=== PATIENT | male | born 1950 | race Caucasian/White ===

== ENCOUNTER → 2018-02-24 08:24 | Outpatient (CLI) | payer BC, SELFPAY ==
--- NOTE | 2018-02-24 | DI.US.S_ITS ---
PROCEDURE: US ABD AORTA ANEURYSM SCREEN INDICATIONS: SCREENING/FORMER SMOKER TECHNIQUE: Real time scanning was performed of the aorta and iliac arteries, with image documentation. COMPARISON: None. FINDINGS: Aorta: Proximal aortic diameter measures 2.3 cm. Mid-aorta measures 1.8 cm. Distal aortic diameter is 1.6 cm. Iliac arteries: Right common iliac artery measures 1.1 cm. Left common iliac artery measures 1 cm. IMPRESSION: Negative for aneurysm. Dictated by: Raphael Barr M.D. on 02/24/2018 at 8:29 Approved by: Raphael Barr M.D. on 02/24/2018 at 8:29
== END ==
PROVIDERS: PCP Family Medicine; Visit Provider Family Medicine
DX: Z13.6 Encounter for screening for cardiovascular disorders (principal); Z87.891 Personal history of nicotine dependence
CPT/HCPCS: 76706

== ENCOUNTER 2019-01-27 12:00 | Day surgery (SDC) | payer MEDICARE, OTHER, SELFPAY ==
[2019-01-27] VITALS (9 sets, daily range): BP systolic 117–140; BP diastolic 60–82; PULSE 57–67; RESP 12–16; TEMP 35.9–36.9; O2SAT 95–96; BMI 27.8
--- NOTE | 2019-01-27 | PATH_ITS ---
[facility] Accession Number: [id number] . 01 Material submitted: . rectum - DISTAL RECTAL POLYP . 02 Diagnosis: Polyp From Distal Rectum: Pedunculated mixed tubular and villiform adenoma, apparently excised in the plane of section. MRV/01/28/2019 . 02 Electronically signed: . Norberto Calderon MD, Pathologist NPI- [id number] . 01 Gross description: . DISTAL RECTAL POLYP: Received in formalin is 1 fragment(s) of sullivan, soft tissue measuring 0.6 x 0.5 x 0.9 cm which is bisected and submitted entirely in 1 cassette(s) /DMC /DMC . 02 Pathologist provided ICD-10: D12.8 . 02 CPT . [id number] Performed at: 01 [facility] [address] [id number] MD Jose G Chacon MD Phone: [phone] Performed at: 02 [facility] [address] [place], [place] [id number] MD Jennifer Madrigal MD Phone: [phone]
[2019-01-27] MEDS: SODIUM CHLORIDE 0.9% 1,000 ML 200 ML IV (12:46)
--- NOTE | 2019-01-27 13:12 | PM.HP.1 ---
History of Present Illness Date Patient Seen: 01/27/19 Time Patient Seen: 13:00 Chief complaint: [id number] Narrative: 68-year-old man presents for 1st ever screening colonoscopy His mother had a history of rectal cancer in her 70s No bowel complaints Tolerated his prep well Patient History Medical History (Updated 01/27/19 @ 12:22 by Jennifer Mejía, MIKEL) Diabetes type 2, controlled (Acute) Elevated cholesterol (Acute) Hypertension (Acute) Myocardial infarct (Acute) Surgical History (Updated 01/27/19 @ 12:21 by Jennifer Mejía RN) H/O heart artery stent (Acute) Social History household members: spouse Family & Social History Social History: household members spouse Meds Home Medications Medication Instructions Recorded Confirmed Type atorvastatin 80 mg PO QPM 01/27/19 01/27/19 History clopidogrel [Plavix] 75 mg PO DAILY 01/27/19 01/27/19 History doxycycline monohydrate 100 mg PO DAILY 01/27/19 01/27/19 History lisinopril 10 mg PO DAILY 01/27/19 01/27/19 History metformin 250 mg PO QPM 01/27/19 01/27/19 History metformin 500 mg PO DAILY 01/27/19 01/27/19 History metoprolol succinate 12.5 mg PO QPM 01/27/19 01/27/19 History Allergies Allergy/AdvReac Type Severity Reaction Status Date / Time No Known Drug Allergies Allergy Verified 01/27/19 12:22 Review of Systems Constitutional Constitutional: Denies fever(s) Eyes Eyes: Denies bulging eyes ENT Ears, Nose, Mouth, and Throat: No lip swelling Cardiovascular Cardiovascular: Denies generalize swelling Respiratory Respiratory: Denies stridor Gastrointestinal Gastrointestinal: Denies coffee ground emesis Musculoskeletal Musculoskeletal: Denies loss of height Integumentary/Breasts Skin/Breast: Denies wounds Neurologic Neurologic: Denies abnormal speech and Denies confusion Psychiatric Psychiatric: Denies confusion Endocrine Endocrine: Denies deepening of the voice Hematologic/Lymphatic Hematologic/Lymphatic: Denies lymphadenopathy Allergic/Immunologic Allergic/Immunologic: Denies lip swelling Exam Vital Signs (past 8 hours): - 01/27/19 12:29 Temperature 96.7 F L Pulse Rate 67 Respiratory Rate 16 Blood Pressure 140/82 Pulse Oximetry 95 Const General: cooperative and healthy appearing Orientation: alert HENMT Head: normal to inspection Nose: nares normal Mouth: oral mucosae normal and lip normal Eyes Eyelids: eyelids normal Conjunctivae: conjunctivae normal Sclera: sclerae normal Neck Neck: supple and other (No thyromegally) Chest Chest: other (LCTAB , regular respiratory effort) Cardio Rhythm: regular rhythm Heart Sounds: S1 normal, S2 normal, no gallops, no murmurs and no rubs GI Other: Abdomen soft nontender nondistended Skin General: no rashes or lesions noted Neuro General: alert and awake Psych Appearance: grossly normal Affect: normal affect Assessment & Plan Assessment & Plan narrative: 68-year-old man at increased risk of colorectal cancer given family history now here for initial screening colonoscopy Risks of procedure including bleeding, missed lesion, perforation, , hypoxia all discussed Patient ready to proceed All questions answered
[2019-01-27] MEDS: MIDAZOLAM 5 MG/5 ML VIAL IV (13:35)
[2019-01-27] MEDS: fentaNYL 250 MCG/5 ML INJ IV (13:36)
--- NOTE | 2019-01-27 14:28 | SUR.PHASEI ---
aroused easily to voice, denies discomfort or nausea, HOB elevated, juice given. Oriented.
--- NOTE | 2019-01-27 18:00 | PM.OP.ENDO ---
Operative Date/Time/Diagnoses Date of procedure: 01/27/19 Time of procedure: 18:00 Pre-op diagnosis: Colorectal cancer screening Procedure & Clinicians Study performed: Screening colonoscopy-complete Snare polypectomy of large rectal polyp -pedunculated Same procedure as scheduled: Yes Indications: 68-year-old man presents for 1st ever screening colonoscopy, mother with a history of colorectal cancer in her 70s. Surgeon: Nahid De Oliveira Procedure Notes SCOAP/Timeout: Completed Procedure in detail: Patient was brought to the endoscopy suite a time-out was completed. A digital rectal exam was performed notable for a hard prostate with a nodule. No mucosal lesions palpated. The patient was sedated over the entire course of the procedure with 6 mg of midazolam and 100 micro g of fentanyl. 160 cm colonoscope was introduced into the anus and advanced through the folds of the rectum and colon to the cecum the cecum was identified via the appendiceal orifice and prominent ileocecal valve. The colonoscope was then slowly withdrawn inspecting the mucosa carefully. No colonic lesions were identified. However upon retroflex in the scope within the rectum a large pedunculated polyp was seen within approximately 3 cm of the dentate line. This was snared with hot cautery. The polyp was subsequently gently snared and extracted through the anus. Incentive pathology No additional lesions were identified Prep was adequate Scope withdrawal time: 17 Sedation minutes: 39 Specimen(s): other ( rectal polyp) Complications: none Impression: Hard nodular prostate -referral to Urology Large pedunculated rectal polyp -status post excision Recommendations: Colonscopy in 5 years Plan for aftercare: Follow-up pathology results PACU then home Follow up: as needed Disposition: PACU
== END 2019-01-27 14:50 | disposition home or self-care (01) ==
PROVIDERS: PCP Family Medicine; Visit Provider Surgery
PROC: 0DJD8ZZ Inspection of Lower Intestinal Tract, Via Natural or Artificial Opening Endoscopic (ICD-10-PCS; CPT 45378; principal; 2019-01-27 13:00)
DX: Z12.11 Encounter for screening for malignant neoplasm of colon (principal); D12.8 Benign neoplasm of rectum; Z80.0 Family history of malignant neoplasm of digestive organs; E11.9 Type 2 diabetes mellitus without complications; E78.00 Pure hypercholesterolemia, unspecified; I10 Essential (primary) hypertension; I25.2 Old myocardial infarction; Z79.84 Long term (current) use of oral hypoglycemic drugs
CPT/HCPCS: 45385; 88305; 99152; 99153; J2250; J3010

== ENCOUNTER → 2023-09-10 12:35 | Outpatient (CLI) | payer MEDICARE, OTHER, SELFPAY ==
--- NOTE | 2023-09-10 12:38 | DI.RAD.S_ITS ---
PROCEDURE: FL SHOULDER INJECTION MR/CT RT INDICATIONS: CHRONIC RIGHT SHOULDER PAIN COMPARISON: None. TECHNIQUE: The indications, alternatives, benefits, risks, and complications of the procedure were explained to the patient. Written informed consent was obtained and placed in the chart. The shoulder was examined fluoroscopically and a site for needle placement chosen for entry into the glenohumeral joint from an anterior approach. The skin was prepped and draped in a sterile fashion, and 1% lidocaine infiltrated from skin down to joint capsule. A spinal needle was inserted into the glenohumeral joint, and a small amount of iodinated contrast media injected to confirm intra-articular placement of the needle tip. This was followed by approximately 12 mL dilute solution of a gadolinium containing MR contrast agent. The needle was removed and a dressing was applied. The patient was given postprocedural instructions and sent to the MR suite for MR imaging. FINDINGS: A single fluoroscopic spot image demonstrates intra-articular location of injected iodinated contrast. IMPRESSION: Successful fluoroscopically guided administration of dilute Gadolinium solution into the shoulder joint for MR arthrogram. Dictated by: Neo Darling M.D. on 09/10/2023 at 14:49 Approved by: Neo Darling M.D. on 09/10/2023 at 14:49
--- NOTE | 2023-09-10 12:38 | DI.MRI.S_ITS ---
PROCEDURE: MR SHOULDER RT W CON INDICATIONS: CHRONIC RIGHT SHOULDER PAIN TECHNIQUE: After the administration of 12 mL of dilute intra-articular Gadolinium contrast, oblique coronal T1 and T2 spin echo with fat saturation, oblique sagittal T1 spin echo with and without fat saturation, oblique sagittal T2 fast spin echo with fat saturation, axial T1 spin echo with fat saturation and T2 fast spin echo with fat saturation through the shoulder. COMPARISON: [facility], , [place] SHOULDER INJECTION MR/CT RT, 09/10/2023, 12:12. FINDINGS: Image quality: Excellent. Rotator cuff: Full-thickness tearing of the supraspinatus tendon and infraspinatus tendon from their distal insertions with proximal tendon retraction measuring approximately 4.5 cm to the level of the glenoid rim. There is mild atrophy and grade 2 fatty infiltration of the supraspinatus and infraspinatus muscles. Teres minor tendon is intact. There is high-grade partial articular sided tearing of the subscapularis tendon at the superior insertion superimposed on moderate to severe tendinosis. Mild grade 2 fatty infiltration of the superior portion of the subscapularis muscle. Bones and bursae: No acute trabecular bone injury or fracture. Humeral head is high riding with mild narrowing of the acromial humeral interval. No focal glenohumeral cartilage defect. Moderate degenerative changes are seen in the acromioclavicular joint with subchondral cystic changes and marginal osteophyte formation. Glenohumeral contrast material communicates with the subacromial/subdeltoid bursa. No intra-articular loose body is seen. Capsule and soft tissues: There is nondisplaced tearing at the superior to posterior superior labrum, which may be chronic. Severe tendinosis and partial intrasubstance tearing of the intra-articular portion of the biceps long head tendon. Glenohumeral ligaments are intact. IMPRESSION: 1. Large full-thickness tear of the supraspinatus and infraspinatus tendons at the distal insertions with proximal tendon retraction measuring up to 4.5 cm. Mild atrophy and grade 2 fatty infiltration of the supraspinatus muscle suggest the tear may be chronic. The humeral head is mildly high riding with narrowing of the acromial humeral interval. 2. Moderate to severe subscapularis tendinosis and high-grade partial articular sided tearing at the superior insertion. Mild grade 2 fatty infiltration of the superior portion of the subscapularis muscle. 3. Severe tendinosis and partial intrasubstance tearing of the proximal biceps long head tendon. 4. Nondisplaced tearing of the superior to posterior superior labrum, which may be chronic. 5. Moderate acromioclavicular joint osteoarthrosis. 6. Glenohumeral contrast material communicates with the subacromial/subdeltoid bursa. Approved by: Odell Johnson M.D. on 09/11/2023 at 11:52
[2023-09-10] MEDS: LIDOCAINE 1% 20 ML INJ (14:00)
[2023-09-10] MEDS: SODIUM CHLORIDE 0.9 % 20 ML VIAL IV (14:00)
== END ==
LOC: RAD 12:37
PROVIDERS: PCP Family Medicine; Referring Provider Family Medicine; Visit Provider Family Medicine
DX: M75.121 Complete rotator cuff tear or rupture of right shoulder, not specified as traumatic (principal); S43.431A Superior glenoid labrum lesion of right shoulder, initial encounter; S46.111A Strain of muscle, fascia and tendon of long head of biceps, right arm, initial encounter; M19.011 Primary osteoarthritis, right shoulder; M25.511 Pain in right shoulder; G89.29 Other chronic pain
CPT/HCPCS: 23350; 73040; 73222; A9579; Q9967

== ENCOUNTER → 2024-02-11 10:39 | Outpatient (CLI) | payer MEDICARE, OTHER, SELFPAY ==
[2024-02-11 11:06] LABS: Estimated Glomerular Filt Rate > 60 mL/min (>60)
--- NOTE | 2024-02-11 12:00 | DI.CT.S_ITS ---
PROCEDURE: CT IVP A/P W/WO INDICATIONS: 73 y/o M w/ gross hematuria, please eval upper tracts. TECHNIQUE: Optional 5 mm thick noncontrast images acquired from the diaphragm to the symphysis pubis. After the administration of intravenous contrast, 5 mm thick images acquired from the diaphragm to the symphysis pubis after a 10-minute delay. 2 mm thick coronal and sagittal reformats were then performed of the kidneys and ureters. For radiation dose reduction, the following was used: automated exposure control, adjustment of mA and/or kV according to patient size. COMPARISON: None. FINDINGS: Image quality: Diagnostic. Kidneys and Ureters: Kidneys are normal size. There are occasional punctate calcifications in the vasculature in the renal sinuses bilaterally. No collecting system calcifications. No hydronephrosis. Several bilateral parapelvic cysts. No solid parenchymal masses. Opacification of collecting systems postcontrast is normal without filling defect or irregularity. The ureters are normal in course and caliber. No ureterolithiasis or periureteric inflammation. Bladder: Minimal uniform bladder wall thickening. No perivesicular inflammation. No visible intraluminal masses. No stones. OTHER: Lower chest: Unremarkable. Liver: No solid mass. Gallbladder: No wall thickening or calcified stones. Biliary ducts: No biliary dilation. Pancreas: No ductal dilation. Spleen: Size is within normal limits. Adrenal Glands: No adrenal nodules. Stomach and Bowel: Stomach and small bowel loops are normal caliber. Normal appendix. Normal quantity of colonic stool. No suspicious colon wall thickening or inflammation. Peritoneum: No abnormal intraperitoneal fluid. No free air. Ventral Wall: No hernia. Abdominal Nodes: No retroperitoneal or mesenteric adenopathy by size criteria. Vessels: The abdominal aorta, IVC, and portal vein are of normal caliber. PELVIS: Pelvic Organs: Moderate prostatomegaly. Pelvic Nodes: No enlarged lymph nodes. Miscellaneous: No inguinal hernias are seen. Bones: No aggressive osseous abnormality. Moderate degenerative change in both hip joints and lumbar spine. IMPRESSION: No explanation for gross hematuria. Several bilateral parapelvic cysts. Otherwise normal kidneys and ureters. Moderate prostatomegaly. Dictated by: Karen Clement M.D. on 02/12/2024 at 11:56 Approved by: Karen Clement M.D. on 02/12/2024 at 12:03
== END ==
PROVIDERS: Radiology Diagnostic Radiology; PCP Family Medicine; Referring Provider Urology; Visit Provider Urology
DX: R31.0 Gross hematuria (principal); N28.1 Cyst of kidney, acquired; N40.0 Benign prostatic hyperplasia without lower urinary tract symptoms
CPT/HCPCS: 36415; 74178; 82565; Q9967